=== PATIENT | female | born 1970 | race African-American/Black ===

== ENCOUNTER → 2017-11-14 | Outpatient (CLI) | payer MEDICARE, MEDICAID ==
[~2017-11-14] MED LIST: BUSP-29 PO; SENN-3 PO; SERT25TA PO
== END | disposition home or self-care (01) ==
LOC: RAD 15:07
PROVIDERS: ATTEND Nurse Practitioner Family
DX: Z01.818 Encounter for other preprocedural examination (principal)
CPT/HCPCS: 71045